=== PATIENT | male | born 1950 | race Caucasian/White ===

== ENCOUNTER 2017-01-11 20:43 | Emergency (ER) | payer OTHER ==
[2017-01-11] MEDS ORDERED: NORCO 5/325MG TABLET (BULK) As Ordered ONE (22:17)
[2017-01-11] MEDS ORDERED: ADACEL/BOOSTRIX VACCINE (DIPHTH/PERTUSS/ACELL/TETANUS)0.5ML SYR (90715) As Ordered ONE (22:18)
--- NOTE | 2017-01-11 23:22 | EDDOCDS ---
Physician Documentation [facility] Name: Franco Welsh Age: 66 yrs Sex: Male : 1950 Arrival Date: 01/11/2017 Time: 20:43 Bed I7 29 Private MD: NO PRIMARY PHYSICIAN, . Disposition: 01/11/17 23:09 Discharged to Home/Self Care. Impression: Nondisplaced fracture of left tibial tuberosity - COMMINUTED. - Condition is Stable. - Discharge Instructions: Crutch Use, Tibial Fracture, Adult. - Prescriptions for [place] 5- 325 mg Oral Tablet - take 1 tablet by ORAL route every 6 hours As needed MDD: 4 tabs; 20 tablet. - Medication Reconciliation, Local Pharmacy Hours form. - Follow up: Emergency Department; When: As needed; Reason: Worsening of conditions. Follow up: Cm Swenson; When: Call to arrange an appointment; Reason: Wound/Symptom Recheck, Recheck today's complaints, Continuance of care, To establish care. - Problem is new. - Symptoms have improved. - Notes: CALL DR. SWENSON'S OFFICE ON Friday TO SCHEDULE AN APPOINTMENT. LET THEM KNOW YOU WERE SEEN IN THE ER [facility] AND HAVE A TIBIAL TUBEROSITY FRACTURE. TAKE THE PAIN MEDICATION DIRECTED, NEEDED FOR PAIN. YOU MAY ALSO TAKE SOME MOTRIN/IBUPROFEN WELL, THERE IS NO ANTI-INFLAMMATORY IN THE PAIN MEDICATION. THE MEDICATION PRESCRIBED CAN MAKE YOU DROWSY. Historical: - Allergies: no known allergies; - Home Meds: 1. aspirin 81 mg Oral chew 1 tab once daily (Last dose: 01/10/2017) 2. multivitamin oral tab 1 tablet daily 3. Fish Oil 300-1,000 mg Oral cpDR daily 4. st disla wart 1 tab daily 5. magnesium oxide 400 mg oral tab 400 mg daily 6. calcium 1 tab daily 7. vitamin b12 daily - PMHx: none; - PSHx: Tonsillectomy; Appendectomy; - Social history: Smoking status: Patient states was never smoker of tobacco. No barriers to communication noted, The patient speaks fluent Malay, Speaks appropriately for age. - Family history: Not pertinent. - : The pt / caregiver states he / she is not on anticoagulants. Home medication list is obtained from the patient. - Exposure Risk Screening:: None identified. Vital Signs: 01/11 20:47 BP 145 / 62; Pulse 66; Resp 18 S; Temp 98.2; Pulse Ox 99% on R/A; Weight 95.25 kg / gr2 209.99 lbs (R); Height 5 ft. 11 in. (180.34 cm) (R); Pain 10/10; 23:19 BP 125 / 62; Pulse 60; Resp 16; Temp 98; Pulse Ox 94% on R/A; Pain 5/10; ld5 20:47 Body Mass Index 29.29 (95.25 kg, 180.34 cm) gr2 Procedures: 23:06 Fracture care/splinting: (Stabilizing Care) Splint applied to left leg using Scotchcast dt4 applied by myself. tech. Examined by me, post splint application: neurovascular intact, 2+ distal pulses palpable, brisk capillary refill noted, Patient tolerated well, LONG LEG, POSTERIOR L-SPLINT APPLIED TO LEFT LEG. PT TOLERATED WELL. . MDM: 20:57 Knee, Complete Ordered. EDMS 20:57 Tibia/Fibula Ordered. EDMS 22:14 HYDROcodone-acetaminophen 4 pack- 5 mg-325 mg 1 packets PO Per package directions; dt4 Dispense with patient. 1 po q4h prn for pain ordered. 22:14 Splint Affected Extremity ordered. dt4 22:14 Crutches ordered. dt4 22:17 Tetanus- Diptheria-Acellular Pertussis 0.5 ml IM once; Routine booster 10-64yrs, >64 dt4 with child contact [place] [employer] ordered. 23:01 Financial registration complete. severo 23:02 [facility] Payment Agreement was scanned into [email or web address] and attached to record. severo Administered Medications: 22:29 Drug: HYDROcodone-acetaminophen 4 pack- 1 packets [hydrocodone 5 mg-acetaminophen 325 mb9 mg tablet (1 tabs)] {Co-Signature: ld5 (Valorie Mccray RN).} Route: PO; 23:21 Follow up: Response: Confirmed pt not driving.; Pain is decreased ld5 22:29 Drug: Tetanus- Diptheria-Acellular Pertussis 0.5 ml [diphth,pertussis(acel),tetanus 2.5 mb9 Lf unit-8 mcg-5 Lf/0.5mL IM syringe (0.5 mL)] {Oil Well Service Operator: [employer]. Exp: 02/13/2019. Lot #: [id number]. } Route: IM; Site: right deltoid; Signatures: Dispatcher MedHost Valorie Watson RN RN ld5 Elizabeth Matta RN RN austinf Federica James, AICHA PARavi dt4 Tete Colin Michael RN mb9 Valorie Mccray RN ld5 The chart was reviewed and I authenticate all verbal orders and agree with the evaluation and treatment provided.Attachments: 23:02 [facility] Payment Agreement severo MTDD
--- NOTE | 2017-01-11 23:22 | EDDOCDS ---
Nurse's Notes [facility] Name: Franco Welsh Age: 66 yrs Sex: Male : 1950 Arrival Date: 01/11/2017 Time: 20:43 Bed I7 Private MD: NO PRIMARY PHYSICIAN, . Diagnosis: Nondisplaced fracture of left tibial tuberosity-COMMINUTED Presentation: 01/11 20:51 Presenting complaint: Patient states: was walking out of the barn and the snow off the dsf roof fell off and landed on left knee. Adult Sepsis Screening: The patient does not have new or worsening altered mentation. Patient's respiratory rate is less than 22. Systolic blood pressure is greater than 100. Patient has a qSOFA score of 0- Negative Sepsis Screen. Suicide/Homicide risk assessment- the patient denies having any suicidal and/or homicidal ideations and does not present with any other emotional, behavioral or mental health complaints. Status: Patient is not a services host or dependent. Transition of care: patient was not received from another setting of care. 20:51 Acuity: EAMON Level 4 dsf 20:51 Method Of Arrival: Wheelchair dsf Triage Assessment: 20:54 General: Appears in no apparent distress, Behavior is appropriate for age, cooperative. dsf Pain: Location: left knee and left renee Pain currently is 8 out of 10 on a pain scale. Pt Declines HIV testing. Historical: - Allergies: no known allergies; - Home Meds: 1. aspirin 81 mg Oral chew 1 tab once daily (Last dose: 01/10/2017) 2. multivitamin oral tab 1 tablet daily 3. Fish Oil 300-1,000 mg Oral cpDR daily 4. st disla wart 1 tab daily 5. magnesium oxide 400 mg oral tab 400 mg daily 6. calcium 1 tab daily 7. vitamin b12 daily - PMHx: none; - PSHx: Tonsillectomy; Appendectomy; - Social history: Smoking status: Patient states was never smoker of tobacco. No barriers to communication noted, The patient speaks fluent Venezuelan, Speaks appropriately for age. - Family history: Not pertinent. - : The pt / caregiver states he / she is not on anticoagulants. Home medication list is obtained from the patient. - Exposure Risk Screening:: None identified. Screenin:19 Screening information is obtained from the patient. Fall risk: At risk due to gait ld5 disturbance. Assistance ADL's: requires no assistance with activities of daily living. Abuse/DV Screen: The patient / caregiver reports he/she is: not in a situation that causes fear, pain or injury. Nutritional screening: No deficits noted. Advance Directives: There is no active DNR order. home support is adequate. Assessment: 22:09 General: Appears uncomfortable, Behavior is appropriate for age, cooperative. Pain: mb9 Location: left knee and left renee Pain currently is 8 out of 10 on a pain scale. Respiratory: Airway is patent Respiratory effort is even, unlabored. Derm: pt appears to have an abrasion to his left knee. Musculoskeletal: Swelling present in left renee and left knee. 22:57 General: Appears uncomfortable, Behavior is appropriate for age, cooperative. Pain: mb9 Location: left renee and left knee Pain currently is 8 out of 10 on a pain scale. Respiratory: Airway is patent Respiratory effort is even, unlabored. 23:19 General: Appears in no apparent distress, Behavior is cooperative. Pain: Pain currently ld5 is 5 out of 10 on a pain scale. Neurological: Level of Consciousness is awake, alert. Respiratory: Airway is patent Respiratory effort is even, unlabored. Vital Signs: 20:47 BP 145 / 62; Pulse 66; Resp 18 S; Temp 98.2; Pulse Ox 99% on R/A; Weight 95.25 kg (R); gr2 Height 5 ft. 11 in. (180.34 cm) (R); Pain 10/10; 23:19 BP 125 / 62; Pulse 60; Resp 16; Temp 98; Pulse Ox 94% on R/A; Pain 5/10; ld5 20:47 Body Mass Index 29.29 (95.25 kg, 180.34 cm) gr2 Vitals: 20:47 Log In Time: January 11, 2017 at 20:47. gr2 ED Course: 20:46 Patient visited by Dejuan Rose. gr2 20:46 NO PRIMARY PHYSICIAN, . is Private Physician. gr2 20:46 Patient moved to Waiting gr2 20:49 Patient visited by Dejuan Rose. gr2 20:49 Patient moved to Pre RCE gr2 20:51 Triage Initiated dsf 21:57 Patient visited by Sudheer Hobson, PATRICE. kb5 21:57 Patient moved to I7 kb5 21:59 [facility]. dt4 21:59 Miguel Briscoe DO is Attending Physician. dt4 21:59 Patient visited by Federica James PA-C. dt4 22:57 Patient visited by Vineet Herr RN. mb9 23:02 [facility] Payment Agreement was scanned into [employer] and attached to record. gjb 23:08 Cm Urena is Referral Physician. dt4 23:12 No IV's were initiated during this patient's visit. ld5 23:12 Assist provider with fracture care of left leg Fracture is closed. Circulation, motor ld5 and sensation is intact. Immoblized with Ortho Glass splint Performed by Federica James PA-C Post immobilization, circulation, motor and sensation remain intact. Patient tolerated well. 23:19 The patient / caregiver is instructed regarding the plan of care and ED course. Patient ld5 has correct armband on for positive identification. 23:21 Patient visited by Valorie Mccray RN. ld5 Administered Medications: 22:29 Drug: HYDROcodone-acetaminophen 4 pack- 1 packets [hydrocodone 5 mg-acetaminophen 325 mb9 mg tablet (1 tabs)] {Co-Signature: ld5 (Valorie Mccray RN).} Route: PO; 23:21 Follow up: Response: Confirmed pt not driving.; Pain is decreased ld5 22:29 Drug: Tetanus- Diptheria-Acellular Pertussis 0.5 ml [diphth,pertussis(acel),tetanus 2.5 mb9 Lf unit-8 mcg-5 Lf/0.5mL IM syringe (0.5 mL)] {Radiologic Technologist Mammogram: [employer]. Exp: 02/13/2019. Lot #: [id number]. } Route: IM; Site: right deltoid; Order Results: There are currently no results for this order. Outcome: 23:09 Discharge ordered by Provider. dt4 23:19 Discharge Assessment: Patient awake, alert and oriented x 3. No cognitive and/or ld5 functional deficits noted. Patient verbalized understanding of disposition instructions. patient administered narcotics - yes. Pt provided with safe discharge. The following High Risk Discharge criteria are identified: None. Discharged to home with crutches, with significant other. Condition: stable. Discharge instructions given to patient, significant other, Instructed on discharge instructions, follow up and referral plans. medication usage, no driving heavy equipment, crutch walking, Demonstrated understanding of instructions, crutch walking, medications, Pt was receptive of discharge instructions/ teaching. Prescriptions given X 1. No special radiology studies were completed. Property :Personal belongings accompany Pt. 23:21 Patient left the ED. ld5 Signatures: Sudheer Hobson, PATRICE BIOFUELS ENGINEERING MANAGER kb5 Valorie Mccray,RN RN ld5 Elizabeth Matta,RN RN dsf Dejuan Rose gr2 Federica James, PA-C PA-C dt4 Vineet Herr,RN RN mb9 Tete Colin RN ld5 BORIS
--- NOTE | 2017-01-12 08:40 | REP ---
Clinical: Trauma. Technique: AP and lateral views of the left tibia / fibula. Findings: There is a comminuted fracture involving the proximal tibia extending from the articular surface and tibial plateau through the proximal tibial metaphysis. Impression: Comminuted nondisplaced fracture of the proximal tibia from the tibial plateau through the metaphysis. Signed by Leo Kelly MD 01/12/2017 08:31 A
--- NOTE | 2017-01-12 08:41 | REP ---
Clinical: Trauma. Technique: AP , lateral and bilateral oblique views of the left knee. Findings: There is a comminuted fracture involving the proximal tibia extending from the articular surface and tibial plateau through the proximal tibial metaphysis. Mild overlying soft tissue swelling is appreciated. No subcutaneous emphysema or radiodense foreign body. The distal femur and patella appear relatively intact and normal for age. Impression: Comminuted nondisplaced fracture of the proximal tibia from the tibial plateau through the metaphysis. Signed by Leo Kelly MD 01/12/2017 08:32 A
--- NOTE | 2017-01-14 00:22 | EDDOCDS ---
Physician Documentation [facility] Name: Franco Welsh Age: 66 yrs Sex: Male : 1950 Arrival Date: 01/11/2017 Time: 20:43 Bed I7 29 Private MD: NO PRIMARY PHYSICIAN, . Disposition: 01/11/17 23:09 Discharged to Home/Self Care. Impression: Nondisplaced fracture of left tibial tuberosity - COMMINUTED. - Condition is Stable. - Discharge Instructions: Crutch Use, Tibial Fracture, Adult. - Prescriptions for [place] 5- 325 mg Oral Tablet - take 1 tablet by ORAL route every 6 hours As needed MDD: 4 tabs; 20 tablet. - Medication Reconciliation, Local Pharmacy Hours form. - Follow up: Emergency Department; When: As needed; Reason: Worsening of conditions. Follow up: Cm Swenson; When: Call to arrange an appointment; Reason: Wound/Symptom Recheck, Recheck today's complaints, Continuance of care, To establish care. - Problem is new. - Symptoms have improved. - Notes: CALL DR. SWENSON'S OFFICE ON Friday TO SCHEDULE AN APPOINTMENT. LET THEM KNOW YOU WERE SEEN IN THE ER [facility] AND HAVE A TIBIAL TUBEROSITY FRACTURE. TAKE THE PAIN MEDICATION DIRECTED, NEEDED FOR PAIN. YOU MAY ALSO TAKE SOME MOTRIN/IBUPROFEN WELL, THERE IS NO ANTI-INFLAMMATORY IN THE PAIN MEDICATION. THE MEDICATION PRESCRIBED CAN MAKE YOU DROWSY. Historical: - Allergies: no known allergies; - Home Meds: 1. aspirin 81 mg Oral chew 1 tab once daily (Last dose: 01/10/2017) 2. multivitamin oral tab 1 tablet daily 3. Fish Oil 300-1,000 mg Oral cpDR daily 4. st disla wart 1 tab daily 5. magnesium oxide 400 mg oral tab 400 mg daily 6. calcium 1 tab daily 7. vitamin b12 daily - PMHx: none; - PSHx: Tonsillectomy; Appendectomy; - Social history: Smoking status: Patient states was never smoker of tobacco. No barriers to communication noted, The patient speaks fluent Luxembourgish, Speaks appropriately for age. - Family history: Not pertinent. - : The pt / caregiver states he / she is not on anticoagulants. Home medication list is obtained from the patient. - Exposure Risk Screening:: None identified. Vital Signs: 01/11 20:47 BP 145 / 62; Pulse 66; Resp 18 S; Temp 98.2; Pulse Ox 99% on R/A; Weight 95.25 kg / gr2 209.99 lbs (R); Height 5 ft. 11 in. (180.34 cm) (R); Pain 10/10; 23:19 BP 125 / 62; Pulse 60; Resp 16; Temp 98; Pulse Ox 94% on R/A; Pain 5/10; ld5 20:47 Body Mass Index 29.29 (95.25 kg, 180.34 cm) gr2 Procedures: 23:06 Fracture care/splinting: (Stabilizing Care) Splint applied to left leg using Scotchcast dt4 applied by myself. tech. Examined by me, post splint application: neurovascular intact, 2+ distal pulses palpable, brisk capillary refill noted, Patient tolerated well, LONG LEG, POSTERIOR L-SPLINT APPLIED TO LEFT LEG. PT TOLERATED WELL. . MDM: 20:57 Knee, Complete Ordered. EDMS 20:57 Tibia/Fibula Ordered. EDMS 22:14 HYDROcodone-acetaminophen 4 pack- 5 mg-325 mg 1 packets PO Per package directions; dt4 Dispense with patient. 1 po q4h prn for pain ordered. 22:14 Splint Affected Extremity ordered. dt4 22:14 Crutches ordered. dt4 22:17 Tetanus- Diptheria-Acellular Pertussis 0.5 ml IM once; Routine booster 10-64yrs, >64 dt4 with child contact [place] [employer] ordered. 23:01 Financial registration complete. [facility] 23:02 [facility] Payment Agreement was scanned into [employer] and attached to record. [facility] 01/12 12:13 T-Sheet-- Draft Copy was scanned into [employer] and attached to record. lg Administered Medications: 01/11 22:29 Drug: HYDROcodone-acetaminophen 4 pack- 1 packets [hydrocodone 5 mg-acetaminophen 325 mb9 mg tablet (1 tabs)] {Co-Signature: ld5 (Valorie Mccray RN).} Route: PO; 23:21 Follow up: Response: Confirmed pt not driving.; Pain is decreased ld5 22:29 Drug: Tetanus- Diptheria-Acellular Pertussis 0.5 ml [diphth,pertussis(acel),tetanus 2.5 mb9 Lf unit-8 mcg-5 Lf/0.5mL IM syringe (0.5 mL)] {Rosin Barrel Filler: [employer]. Exp: 02/13/2019. Lot #: [id number]. } Route: IM; Site: right deltoid; Signatures: Dispatcher MedHost Hugh Blackmon, Reg Reg lg Valorie Mccray RN RN ld5 Elizabeth Matta RN RN Federica Stanley PA-C PA-C dt4 Beck, Gabriela gjb Belles, Michael RN mb9 Valorie Mccrya RN ld5 The chart was reviewed and I authenticate all verbal orders and agree with the evaluation and treatment provided.Attachments: 23:02 [facility] Payment Agreement gjb 01/12 12:13 T-Sheet-- Draft Copy lg Chart Complete MTDD
--- NOTE | 2017-01-14 00:22 | EDDOCDS ---
Physician Documentation [facility] Name: Franco Welsh Age: 66 yrs Sex: Male : 1950 Arrival Date: 01/11/2017 Time: 20:43 Bed I7 29 Private MD: NO PRIMARY PHYSICIAN, . Disposition: 01/11/17 23:09 Discharged to Home/Self Care. Impression: Nondisplaced fracture of left tibial tuberosity - COMMINUTED. - Condition is Stable. - Discharge Instructions: Crutch Use, Tibial Fracture, Adult. - Prescriptions for [place] 5- 325 mg Oral Tablet - take 1 tablet by ORAL route every 6 hours As needed MDD: 4 tabs; 20 tablet. - Medication Reconciliation, Local Pharmacy Hours form. - Follow up: Emergency Department; When: As needed; Reason: Worsening of conditions. Follow up: Cm Swenson; When: Call to arrange an appointment; Reason: Wound/Symptom Recheck, Recheck today's complaints, Continuance of care, To establish care. - Problem is new. - Symptoms have improved. - Notes: CALL DR. SWENSON'S OFFICE ON Friday TO SCHEDULE AN APPOINTMENT. LET THEM KNOW YOU WERE SEEN IN THE ER [facility] AND HAVE A TIBIAL TUBEROSITY FRACTURE. TAKE THE PAIN MEDICATION DIRECTED, NEEDED FOR PAIN. YOU MAY ALSO TAKE SOME MOTRIN/IBUPROFEN WELL, THERE IS NO ANTI-INFLAMMATORY IN THE PAIN MEDICATION. THE MEDICATION PRESCRIBED CAN MAKE YOU DROWSY. Historical: - Allergies: no known allergies; - Home Meds: 1. aspirin 81 mg Oral chew 1 tab once daily (Last dose: 01/10/2017) 2. multivitamin oral tab 1 tablet daily 3. Fish Oil 300-1,000 mg Oral cpDR daily 4. st disla wart 1 tab daily 5. magnesium oxide 400 mg oral tab 400 mg daily 6. calcium 1 tab daily 7. vitamin b12 daily - PMHx: none; - PSHx: Tonsillectomy; Appendectomy; - Social history: Smoking status: Patient states was never smoker of tobacco. No barriers to communication noted, The patient speaks fluent Amharic, Speaks appropriately for age. - Family history: Not pertinent. - : The pt / caregiver states he / she is not on anticoagulants. Home medication list is obtained from the patient. - Exposure Risk Screening:: None identified. Vital Signs: 01/11 20:47 BP 145 / 62; Pulse 66; Resp 18 S; Temp 98.2; Pulse Ox 99% on R/A; Weight 95.25 kg / gr2 209.99 lbs (R); Height 5 ft. 11 in. (180.34 cm) (R); Pain 10/10; 23:19 BP 125 / 62; Pulse 60; Resp 16; Temp 98; Pulse Ox 94% on R/A; Pain 5/10; ld5 20:47 Body Mass Index 29.29 (95.25 kg, 180.34 cm) gr2 Procedures: 23:06 Fracture care/splinting: (Stabilizing Care) Splint applied to left leg using Scotchcast dt4 applied by myself. tech. Examined by me, post splint application: neurovascular intact, 2+ distal pulses palpable, brisk capillary refill noted, Patient tolerated well, LONG LEG, POSTERIOR L-SPLINT APPLIED TO LEFT LEG. PT TOLERATED WELL. . MDM: 20:57 Knee, Complete Ordered. EDMS 20:57 Tibia/Fibula Ordered. EDMS 22:14 HYDROcodone-acetaminophen 4 pack- 5 mg-325 mg 1 packets PO Per package directions; dt4 Dispense with patient. 1 po q4h prn for pain ordered. 22:14 Splint Affected Extremity ordered. dt4 22:14 Crutches ordered. dt4 22:17 Tetanus- Diptheria-Acellular Pertussis 0.5 ml IM once; Routine booster 10-64yrs, >64 dt4 with child contact [place] [employer] ordered. 23:01 Financial registration complete. [facility] 23:02 [facility] Payment Agreement was scanned into [employer] and attached to record. [facility] 01/12 12:13 T-Sheet-- Draft Copy was scanned into [employer] and attached to record. lg Administered Medications: 01/11 22:29 Drug: HYDROcodone-acetaminophen 4 pack- 1 packets [hydrocodone 5 mg-acetaminophen 325 mb9 mg tablet (1 tabs)] {Co-Signature: ld5 (Valorie Mccray RN).} Route: PO; 23:21 Follow up: Response: Confirmed pt not driving.; Pain is decreased ld5 22:29 Drug: Tetanus- Diptheria-Acellular Pertussis 0.5 ml [diphth,pertussis(acel),tetanus 2.5 mb9 Lf unit-8 mcg-5 Lf/0.5mL IM syringe (0.5 mL)] {Web Applications Administrator: [employer]. Exp: 02/13/2019. Lot #: [id number]. } Route: IM; Site: right deltoid; Signatures: Dispatcher MedHost Hugh Blackmon, Reg Reg lg Valorie Mccray RN RN ld5 Elizabeth Matta RN RN Federica Stanley PA-C PA-C dt4 Beck, Gabriela gjb Belles, Michael RN mb9 Valorie Mccray RN ld5 The chart was reviewed and I authenticate all verbal orders and agree with the evaluation and treatment provided.Attachments: 23:02 [facility] Payment Agreement gjb 01/12 12:13 T-Sheet-- Draft Copy lg Chart Complete MTDD
--- NOTE | 2017-01-14 00:22 | EDDOCDS ---
Nurse's Notes [facility] Name: Franco Welsh Age: 66 yrs Sex: Male : 1950 Arrival Date: 01/11/2017 Time: 20:43 Bed I7 Private MD: NO PRIMARY PHYSICIAN, . Diagnosis: Nondisplaced fracture of left tibial tuberosity-COMMINUTED Presentation: 01/11 20:51 Presenting complaint: Patient states: was walking out of the barn and the snow off the dsf roof fell off and landed on left knee. Adult Sepsis Screening: The patient does not have new or worsening altered mentation. Patient's respiratory rate is less than 22. Systolic blood pressure is greater than 100. Patient has a qSOFA score of 0- Negative Sepsis Screen. Suicide/Homicide risk assessment- the patient denies having any suicidal and/or homicidal ideations and does not present with any other emotional, behavioral or mental health complaints. 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 Transition of care: patient was not received from another setting of care. 20:51 Acuity: EAMON Level 4 dsf 20:51 Method Of Arrival: Wheelchair dsf Triage Assessment: 20:54 General: Appears in no apparent distress, Behavior is appropriate for age, cooperative. dsf Pain: Location: left knee and left renee Pain currently is 8 out of 10 on a pain scale. Pt Declines HIV testing. Historical: - Allergies: no known allergies; - Home Meds: 1. aspirin 81 mg Oral chew 1 tab once daily (Last dose: 01/10/2017) 2. multivitamin oral tab 1 tablet daily 3. Fish Oil 300-1,000 mg Oral cpDR daily 4. st disla wart 1 tab daily 5. magnesium oxide 400 mg oral tab 400 mg daily 6. calcium 1 tab daily 7. vitamin b12 daily - PMHx: none; - PSHx: Tonsillectomy; Appendectomy; - Social history: Smoking status: Patient states was never smoker of tobacco. No barriers to communication noted, The patient speaks fluent Moldovan, Speaks appropriately for age. - Family history: Not pertinent. - : The pt / caregiver states he / she is not on anticoagulants. Home medication list is obtained from the patient. - Exposure Risk Screening:: None identified. Screenin:19 Screening information is obtained from the patient. Fall risk: At risk due to gait ld5 disturbance. Assistance ADL's: requires no assistance with activities of daily living. Abuse/DV Screen: The patient / caregiver reports he/she is: not in a situation that causes fear, pain or injury. Nutritional screening: No deficits noted. Advance Directives: There is no active DNR order. home support is adequate. Assessment: 22:09 General: Appears uncomfortable, Behavior is appropriate for age, cooperative. Pain: mb9 Location: left knee and left renee Pain currently is 8 out of 10 on a pain scale. Respiratory: Airway is patent Respiratory effort is even, unlabored. Derm: pt appears to have an abrasion to his left knee. Musculoskeletal: Swelling present in left renee and left knee. 22:57 General: Appears uncomfortable, Behavior is appropriate for age, cooperative. Pain: mb9 Location: left renee and left knee Pain currently is 8 out of 10 on a pain scale. Respiratory: Airway is patent Respiratory effort is even, unlabored. 23:19 General: Appears in no apparent distress, Behavior is cooperative. Pain: Pain currently ld5 is 5 out of 10 on a pain scale. Neurological: Level of Consciousness is awake, alert. Respiratory: Airway is patent Respiratory effort is even, unlabored. Vital Signs: 20:47 BP 145 / 62; Pulse 66; Resp 18 S; Temp 98.2; Pulse Ox 99% on R/A; Weight 95.25 kg (R); gr2 Height 5 ft. 11 in. (180.34 cm) (R); Pain 10/10; 23:19 BP 125 / 62; Pulse 60; Resp 16; Temp 98; Pulse Ox 94% on R/A; Pain 5/10; ld5 20:47 Body Mass Index 29.29 (95.25 kg, 180.34 cm) gr2 Vitals: 20:47 Log In Time: January 11, 2017 at 20:47. gr2 ED Course: 20:46 Patient visited by Dejuan Rose. gr2 20:46 NO PRIMARY PHYSICIAN, . is Private Physician. gr2 20:46 Patient moved to Waiting gr2 20:49 Patient visited by Dejuan Rose. gr2 20:49 Patient moved to Pre RCE gr2 20:51 Triage Initiated dsf 21:57 Patient visited by Sudheer Hobson, PATRICE. kb5 21:57 Patient moved to I7 kb5 21:59 [facility] dt4 21:59 Miguel Briscoe DO is Attending Physician. dt4 21:59 Patient visited by Federica James PA-C. dt4 22:57 Patient visited by Vineet Herr RN. mb9 23:02 [facility] Payment Agreement was scanned into [employer] and attached to record. gjb 23:08 Cm Urena is Referral Physician. dt4 23:12 No IV's were initiated during this patient's visit. ld5 23:12 Assist provider with fracture care of left leg Fracture is closed. Circulation, motor ld5 and sensation is intact. Immoblized with Ortho Glass splint Performed by Federica James PA-C Post immobilization, circulation, motor and sensation remain intact. Patient tolerated well. 23:19 The patient / caregiver is instructed regarding the plan of care and ED course. Patient ld5 has correct armband on for positive identification. 23:21 Patient visited by Valorie Mccray RN. ld5 02 09:13 Tibia/Fibula Returned. EDMS 09:13 Knee, Complete Returned. EDMS 12:13 T-Sheet-- Draft Copy was scanned into [employer] and attached to record. lg Administered Medications: 01/11 22:29 Drug: HYDROcodone-acetaminophen 4 pack- 1 packets [hydrocodone 5 mg-acetaminophen 325 mb9 mg tablet (1 tabs)] {Co-Signature: ld5 (Valorie Mccray RN).} Route: PO; 23:21 Follow up: Response: Confirmed pt not driving.; Pain is decreased ld5 22:29 Drug: Tetanus- Diptheria-Acellular Pertussis 0.5 ml [diphth,pertussis(acel),tetanus 2.5 mb9 Lf unit-8 mcg-5 Lf/0.5mL IM syringe (0.5 mL)] {[employer]bf[employer] Developer: [employer]. Exp: 02/13/2019. Lot #: [id number]. } Route: IM; Site: right deltoid; Order Results: Radiology Order: Knee, Complete Test: Knee, Complete REASON FOR EXAMINATION: Trauma; Clinical: Trauma.; ; Technique: AP , lateral and bilateral oblique views of the left knee.; ; Findings:; There is a comminuted fracture involving the proximal tibia extending from the; articular surface and tibial plateau through the proximal tibial metaphysis. Mild; overlying soft tissue swelling is appreciated. No subcutaneous emphysema or; radiodense foreign body. The distal femur and patella appear relatively intact; and normal for age.; ; Impression:; Comminuted nondisplaced fracture of the proximal tibia from the tibial plateau; through the metaphysis.; ; ; Signed by; Leo Kelly MD 01/12/2017 08:32 A; Radiology Order: Tibia/Fibula Test: Tibia/Fibula REASON FOR EXAMINATION: Trauma; Clinical: Trauma.; ; Technique: AP and lateral views of the left tibia / fibula.; ; Findings:; There is a comminuted fracture involving the proximal tibia extending from the; articular surface and tibial plateau through the proximal tibial metaphysis.; ; Impression:; Comminuted nondisplaced fracture of the proximal tibia from the tibial plateau; through the metaphysis.; ; ; Signed by; Leo Kelly MD 01/12/2017 08:31 A; Outcome: 23:09 Discharge ordered by Provider. dt4 23:19 Discharge Assessment: Patient awake, alert and oriented x 3. No cognitive and/or ld5 functional deficits noted. Patient verbalized understanding of disposition instructions. patient administered narcotics - yes. Pt provided with safe discharge. The following High Risk Discharge criteria are identified: None. Discharged to home with crutches, with significant other. Condition: stable. Discharge instructions given to patient, significant other, Instructed on discharge instructions, follow up and referral plans. medication usage, no driving heavy equipment, crutch walking, Demonstrated understanding of instructions, crutch walking, medications, Pt was receptive of discharge instructions/ teaching. Prescriptions given X 1. No special radiology studies were completed. Property :Personal belongings accompany Pt. 23:21 Patient left the ED. ld5 Signatures: Dispatcher [employer] EDMS Hugh Boateng, Maurice Reg lg Sudheer Hobson, DOBIE MAN DOBIE MAN kb5 Valorie Mccray RN RN ld5 Elizabeth Matta RN RN dsf Dejuan Rose gr2 Federica James, PAWilliamC PA-C dt4 Vineet Herr RN RN mb9 Tete Colin RN ld5 Chart Complete MTDD
== END 2017-01-11 23:21 | disposition home or self-care (01) ==
LOC: M ED 20:43
DX: S82.155A Nondisplaced fracture of left tibial tuberosity, initial encounter for closed fracture (principal); W01.198A Fall on same level from slipping, tripping and stumbling with subsequent striking against other object, initial encounter; Y92.71 Barn as the place of occurrence of the external cause; Y93.89 Activity, other specified; Y99.8 Other external cause status; Z79.82 Long term (current) use of aspirin